=== PATIENT | male | born 2000 | race Caucasian/White ===

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

== ENCOUNTER 2023-08-06 18:17 | Emergency (ER) | payer MEDICAID, OTHER ==
[~2023-08-06] VITALS: Ht 167.6 cm; Wt 62.7 kg
[2023-08-06] MEDS ORDERED: NAPR-837 PO (22:08)
[2023-08-06 22:11] VITALS: BP 116/68; TEMP 98.2; O2SAT 99
== END 2023-08-06 22:18 | disposition home or self-care (01) ==
LOC: M ED 18:17
DX: S20.219A Contusion of unspecified front wall of thorax, initial encounter (principal); W51.XXXA Accidental striking against or bumped into by another person, initial encounter; Y92.9 Unspecified place or not applicable; Y93.66 Activity, soccer; Y99.9 Unspecified external cause status; Z79.1 Long term (current) use of non-steroidal anti-inflammatories (NSAID)